=== PATIENT | female | born 1990 | race African-American/Black ===

== ENCOUNTER 2022-06-13 01:43 | Emergency (ER) | payer SELFPAY ==
[~2022-06-13] VITALS: Ht 182.9 cm; Wt 73.0 kg
[2022-06-13 01:45] VITALS: BP 136/82
[2022-06-13] MEDS ORDERED: IPRATROPIUM BROMIDE (0.02%) 0.5MG/2.5ML NEB HHN STA (02:05)
[2022-06-13] MEDS ORDERED: ALBUTEROL (0.083%) 2.5MG/3ML NEB HHN STA (02:05)
[2022-06-13] MEDS ORDERED: ALBU6.7H9 INH (03:09)
== END 2022-06-13 03:23 | disposition home or self-care (01) ==
LOC: ER 01:43
DX: F41.9 Anxiety disorder, unspecified (principal); R07.89 Other chest pain; J45.909 Unspecified asthma, uncomplicated
CPT/HCPCS: 93005; 94640; 99283; Z7610